=== PATIENT | female | born 1940 | race Caucasian/White ===

== ENCOUNTER 2017-02-05 11:43 | Day surgery (SDC) | payer MEDICARE, OTHER ==
[2017-02-05] VITALS (17 sets, daily range): BP systolic 142–241; BP diastolic 59–111; PULSE 56–86; RESP 14–16; O2SAT 94–100
[~2017-02-05] VITALS: Ht 165.1 cm; Wt 91.0 kg
[~2017-02-05 11:43] MED LIST: Lactated Ringer's 1,000 ML IV ONE; TIOT18CA3 IH
[2017-02-05] MEDS ORDERED: EPINEPHrine 0.1 mg/mL 10 mL Syringe ONE (11:44)
[2017-02-05] MEDS ORDERED: Propofol 10,000 mCg/mL 20 mL Inj ONE (11:44)
[2017-02-05] MEDS ORDERED: THYR97.5 PO (12:53)
[2017-02-05] MEDS ORDERED: Lactated Ringer's 1,000 ML IV SCH (13:38)
--- NOTE | 2017-02-05 13:38 | PCM.HPANE ---
Patient Data Date of Service: February 05, 2017 Surgeon Admitting Provider: Attending Provider:Keturah Elaine MD Primary Care Physician:Hiwot Monsivais MD Other Provider:Pedro Anthony Anesthesia Reason for Visit Positive Fit Test Ht/WT & BMI Height (Feet): 5 Height (Inches): 5 Weight (Kilograms): 91 Body Mass Index 33.00 Allergies Coded Allergies: No Known Drug Allergies (Verified Allergy, Unknown, 02/05/17) Past Anesthesia History Anesthesia History: Denies:: Anesthesia Reactions, Fam Anesthesia Reaction, Fam Malignant Hypertherm, Malignant Hyperthermia Diabetes History Hx Diabetes?: No MRSA MRSA: No Medications Hypertension Medication: No Reported Medications Thyroid,Pork (Nature-Throid)97.5 Mg Agofgy55.5 Mg PO DAILY 02/05/17 Tiotropium Kent (Spiriva)18 Mcg Cap.w.dev18 Mcg IH DAILY #1 PKG Ref 0 02/04/17 History History of ENT Problems?: No HEENT History: Denies:: Abnormal Airway Cataracts Difficult Intubation Dysphagia Glaucoma Hearing Problem Sinus Problem TMJ Denture Type: None Teeth Condition: Within Normal Limits Hx of Heart Problems?: No Cardiovascular History: Denies:: AICD Pacemaker Valvular Heart Disease Hx of Respiratory Problem?: Yes Respiratory History: Positive for:: COPD Hx Neurologic Problems?: No Neurological History: Denies:: CVA Hx of GI Problems?: Yes Other GI Pertinent History: POSITIVE FIT TEST Hx of Problems?: No HX of Peritoneal Dialysis: No Female Hx: Denies:: Currently (ANNA) Hx Musculoskeletal Problems?: No Hx of Psycho/Social Problems?: No Hx Surgeries?: Yes (APPY, TONSILS) Hx Any Other Health Problems?: No Hx Diabetes: No Hx Alcohol Use: Yes (OCCASIONAL) Stop/Bang Treated for Sleep Apnea?: No Do You Have a CPAP Machine?: No S-Snoring: Do You Snore Loudly: No T-Tired: feel tired, fatigued: No O-Obsered: Observed not breath: No P-Blood Pressure: treated: No B- Body Mass Index > 35 kg/m2: No A- Age over 50: Yes N- Neck Large Circumference: No G- Gender Male: No ESTELA Total Score: 1 Risk Assessment Category Category 1A: Patient has history of documented sleep apnea, and HAS NOT received any narcotic, sedative or anesthesia administration during this stay. Category 1B: Patient has history of documented sleep apnea, and HAS received any narcotic , sedative or anesthesia administration during this stay Category 2: Patient has SUSPECTED Obstructive Sleep Apnea, and HAS received any narcotic , sedative or anesthesia administration during this stay. Category 3: Patient has SUSPECTED Obstructive Sleep Apnea and HAS NOT received narcotic, sedative or anesthesia administration during this stay. Category 4: Outpatient in Procedural Areas with known sleep apnea or who screen positive for High Risk via the STOP/BANG questionnaire. Exam Exam Vital Signs Vital Signs Date Time Temp Pulse Resp B/P Pulse Ox O2 Delivery O2 Flow Rate FiO2 02/05/17 12:53 37.4 69 16 184/81 96 Room Air General Appearance: Alert, Oriented X3 HEENT/AIRWAY: MP 1 Lungs: Clear to Auscultation Heart: Exam Unremarkable Meds/Labs/Diagnostics Admission Meds Current Medications Lactated Ringer's (Lr) 1,000 ml @ 10 mls/hr Q24H ONCE IV Last administered on 02/05/17t 13:04; Start 02/05/17 at 06:00; Stop 02/06/17 at 05:59 Plan Impression Patient chart reviewed, patient interviewed and anesthestic plan with risks, benefits, and alternatives discussed, and informed consent obtained. NPO per Anesth. Guidelines: Yes ASA Physical Status: ASA2 Mod Systemic Disease Anesthetic Plan: MAC Bene/Risks/Altern/Consents: Yes HP Complete Prior to Induction: Yes Nimesh Brenner MD February 05, 2017 13:38
[2017-02-05] MEDS ORDERED: Ondansetron 2 mg/mL 2 mL Inj IVPUSH PRN (13:40)
[2017-02-05] MEDS ORDERED: MetoCLOpramide 5 mg/mL 2 mL Inj IVPUSH PRN (13:40)
--- NOTE | 2017-02-05 14:24 | PCM.ANEP1 ---
Post Anesthesia Phase 1 PACU Phase 1 Assessment Date of Service: February 05, 2017 Vital Signs Vital Signs Date Time Temp Pulse Resp B/P Pulse Ox O2 Delivery O2 Flow Rate FiO2 02/05/17 14:15 75 16 168/59 94 Room Air 02/05/17 14:04 36.7 66 14 162/98 96 Room Air 02/05/17 12:53 37.4 69 16 184/81 96 Room Air Anesthetic Administered: MAC Level of Alertness: Awake, talking Pain: No Nausea or Vomiting: No Oxygen Delivery: Room Air Lungs: Clear to Auscultation Complications: No Follow up Care: No Nimesh Brenner MD February 05, 2017 14:24
[2017-02-05] MEDS: hydrALAZINE 20 mg/mL Inj IV ONE ×3 (14:55→15:43)
[2017-02-05] MEDS ORDERED: Labetalol 5 mg/mL 4 mL Inj IVPUSH ONE (16:00)
--- NOTE | 2017-02-05 16:48 | ENDO ---
[address] [address] ENDOSCOPY PROCEDURE PATIENT: BENIGNO MOCK : 1940 MR#: [id number] ADMIT: 02/05/2017 JOB ID: [id number] PROCEDURE: Colonoscopy. INDICATION: Positive FIT test. Patient's ASA classification, Mallampati score, and medications as per Anesthesia note. INSTRUMENT USED: [id number] PREPARATION QUALITY: Fair. PROCEDURE DETAILS: After informed consent was obtained, the patient was brought into the GI suite, where she was placed on oxygen via nasal cannula and monitored with continuous pulse oximeter, telemetry, and blood pressure monitoring. A time-out was performed and she was placed in a left lateral decubitus position. Medications were administered for sedation. Digital rectal exam was performed, which was unremarkable. The colonoscope was then inserted into the rectum and advanced under direct visualization to the cecum, which was identified by the presence of the ileocecal valve and appendiceal orifice. Once the cecum was reached, the colonoscope was then withdrawn back into the rectum. Mucosa and lumen were examined. In the rectum, retroflexion was performed. Following retroflexion, remaining air in the rectum was suctioned, and procedure was completed. FINDINGS: 1. In the sigmoid colon, there was an approximately 3 cm pedunculated polyp. I was unable to completely visualize the entirety of the polyp or the stalk. At this point, I injected epinephrine into the base of the polyp as well as into the polyp itself with the purpose of shrinking the polyp so that I could visualize the polyp to place the snare around. Following injection of the polyp with epinephrine, I then withdrew the colonoscope back into the rectum, where two polyps were seen. One measured approximately 4 mm and sessile and was removed with a cold snare. There other rectal polyp was diminutive and was removed with cold biopsy forceps. Retroflexed views in the rectum were unremarkable. Following removal of the two rectal polyps, the colonoscope was then inserted back to the sigmoid colon where the polyp appeared to be smaller in size. At this point, I was able to visualize the polyp in its entirety. At this point, a snare was placed around the polyp and stalk and then removed piecemeal. The resulting mucosal defect was then approximated with placement of one hemoclip. Adjacent to this site there was a diminutive polyp that was removed with cold biopsy forceps. 2. Scattered diverticula were seen throughout the left side of the colon. IMPRESSION: 1. Two sigmoid polyps. 2. Two rectal polyps. 3. Left-sided diverticulosis. RECOMMENDATIONS: 1. Avoid NSAIDs and anticoagulants for 72 hours. 2. Repeat colonoscopy pending polyp pathology results. COMPLICATIONS: None. ESTIMATED BLOOD LOSS: Less than 5 mL. MTDD
--- NOTE | 2017-02-09 14:53 | PATH ---
SURGICAL PATHOLOGY Attending Physician:America Moctezuma CASE STATUS: Signed Out PATIENT NAME: BENIGNO MOCK PID: [id number] : 1940 DATE COLLECTED:02/05/2017 00:00 SPECIMEN: 1: Colon, Biopsy 2: Rectum, Biopsy CLINICAL HISTORY: 1. SIGMOID COLON POLYP X2 2. 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 2.RECTAL POLYPS: HYPERPLASTIC POLYP INVOLVING ALL THREE BIOPSY FRAGMENTS. ICD10 CODE D12.5 GROSS DESCRIPTION: The specimen is received in two formalin filled containers labeled with the patient's name. 1). The specimen sublabeled "sigmoid polyp" and consists of 2 portions of tissue which aggregate to 1.4 x 0.8 x 0.8 CM. The first piece is trisected and entirely submitted in cassette 1A. The largest piece is bisected and totally submitted in cassette 1B. 2). The specimen is sublabeled "rectal polyp" and consists of 3 portions of tissue which aggregate to 0.3 x 0.3 x 0.2 CM. The specimen is entirely submitted in cassette 2A. 02/06/2017 [facility] MICRO DESCRIPTION: See diagnosis. ICD-9 CODES: CPT CODES: 1: 17418 2: 14321 Electronically Signed Out Yung Deras MD [facility] [address] [facility], [place] [address] Technical component performed at [facility], [facility] [address], [place], [address]
== END 2017-02-05 23:59 | disposition home or self-care (01) ==
LOC: END 11:43
PROVIDERS: ATTEND Internal Medicine Gastroenterology
DX: D12.5 Benign neoplasm of sigmoid colon (principal); K62.1 Rectal polyp; K57.30 Diverticulosis of large intestine without perforation or abscess without bleeding; R19.5 Other fecal abnormalities; J44.9 Chronic obstructive pulmonary disease, unspecified; Z80.41 Family history of malignant neoplasm of ovary; Z80.0 Family history of malignant neoplasm of digestive organs; Z87.891 Personal history of nicotine dependence; Z79.82 Long term (current) use of aspirin
CPT/HCPCS: 45380; 45381; 45385; J0171; J0360; J7120